=== PATIENT | female | born 1955 | race Caucasian/White ===

== ENCOUNTER 2022-01-15 06:59 | Inpatient (IN) ==
--- NOTE | 2022-01-15 07:25 | Emergency Department Note ---
History of Present Illness General Chief complaint: Fall Stated complaint: FALL, L KNEE & WRIST PAIN Time Seen by Provider: 01/15/22 07:02 History of Present Illness Maximum Pain Intensity: 10 This 66-year-old female presents today for evaluation of left wrist pain and left knee pain after falling at home today. Patient states she was attempting to remove a mouse caught in a glue trap, and was walking across her kitchen floor in socks. She slipped, "scissoring" her legs. She felt a break in her left knee. There was immediate onset of pain. She landed on her left wrist and also noted immediate onset of pain. She was unable to ambulate. No prior history of knee or wrist injury. She denies any numbness or tingling. Patient feels better laying on her side. She presents by EMS service. No treatment yet. She denies striking her head. There was no loss of conscious. She denies any nausea, vomiting, back pain, or abdominal pain. She last ate around 7 PM last evening. Home Medications Medication Instructions Recorded Confirmed Type melatonin 10 mg chewable tablet 10 mg PO HS PRN Sleep 01/15/22 01/15/22 History mvi,min-folic acid 400 mcg-black 1 tab PO DAILY 01/15/22 01/15/22 History coh 40 mg-isoflav 40 mg-jujube tablet (Estroven Menopause) Allergies Allergy/AdvReac Type Severity Reaction Status Date / Time Penicillins Allergy Unknown HAPPENED Verified 01/15/22 15:15 A CHILD Past Med/Surg History Medical History (Updated 01/15/22 @ 22:03 by Ricardo Peters PA-C) No pertinent past medical history Surgical History History of tonsillectomy Family History Other Hypertension No family history of adverse response to anesthesia No family history of bleeding disorder Social History (Updated 01/15/22 @ 14:34 by Ricardo Peters PA-C) Smoking Status: Current some day smoker Tobacco Type: Cigarettes Hx Alcohol Use: Yes Alcohol type: beer Hx Substance Use: No Preferred Language: Bulgarian Communication Ability: Effective Hearing Ability: Normal Ror Engineer Required: No Beliefs That Will Affect Care: None marital status: Single Current Living Situation: Family Current Living Situation Comment: Cares for her mother. Feels Safe at Home: Yes Assistive Devices: Denture - Upper, Denture - Lower and Glasses Review of Systems A total of 10 systems reviewed and were otherwise negative Physical Exam Vital Signs Vital Signs - 24 hr 01/15/22 06:59 Temperature 36.6 C Temperature Source Oral Pulse Rate 70 Respiratory Rate 18 Respiratory Effort / Characteristics Non-Labored Respiratory Depth Normal Respiratory Pattern Regular Blood Pressure 128/77 Blood Pressure Mean 94 Pulse Oximetry 100 Oxygen Delivery Method Room Air Sepsis Recent Fever Within 48 Hours No Sepsis New/Unexplained Change in Mental Status N/A Sepsis Action Taken by Nursing No Action Required General: Well-developed, well-nourished, elderly female, in no acute distress. Laying in bed. Alert and oriented. Obvious discomfort. Skin: Warm dry with good turgor. No rashes or lesions. No ecchymosis. She does have edema present at her left wrist and left knee. There is also edema at the left lateral gastroc/fibular head. Heart: Heart RRR. No MGR. Peripheral pulses are 2+. Lungs: Lungs are clear to auscultation. No crackles rhonchi or wheezing. Good air movement. The patient is able to take a deep breath. Abdomen: Abdomen was inspected, auscultated, and palpated. Bowel sounds present x 4. Soft, nontender to palpation. No hepato-splenomegaly. No masses noted. No rebound. Musculoskeletal: Left wrist evaluation reveals very limited motion secondary to pain. Obvious deformity to the wrist. She has focal pain with palpation over the distal radius, distal ulna, and carpal bones. No pain with palpation over the metacarpals or digits. Motor function of the fingers is intact. She has intact motor function to the shoulder and elbow. She has full flexion extension of the elbow. Supination and pronation are limited secondary to wrist pain. She has no discomfort palpation over her cervical spine, thoracic spine, lumbar spine, right arm, pelvis, or right hip. Supple motion of the right hip, knee, and ankle. Left leg has visible edema at the knee as stated. There is limited range of motion of the knee secondary to pain. She does have full passive stanchion. Flexion to around 60 degrees. Collateral ligament testing was not performed secondary to her edema and pain. She has intact motor function of the ankle and toes. No hip discomfort with gentle motion of the left hip. Neurologic: Gross sensation is intact across the upper and lower extremities by soft touch. Peripheral pulses are 2+. Course Administered Medications Ibuprofen (Ibuprofen 600 Mg Tab) 600 mg PO Q6H PRN PRN Reason: Pain Stop: 02/14/22 20:48 Last Admin: 01/15/22 20:54 Dose: 600 mg Documented By: DEA Discontinued Medications Morphine Sulfate (Morphine Sulfate 4 Mg/Ml 1 Ml Carp\\Vial) 4 mg IV NOW STA Stop: 01/15/22 07:58 Last Admin: 01/15/22 08:10 Dose: 4 mg Documented By: SB Ondansetron HCl (Ondansetron Inj 2 Mg/Ml 2 Ml Vial) 4 mg IV NOW STA Stop: 01/15/22 07:58 Last Admin: 01/15/22 08:10 Dose: 4 mg Documented By: SB Medical Decision Making Differential Diagnosis Intracranial injury, long bone fracture, sprain, contusion, syncopal episod Medical Records Attestation: I reviewed the patient's medical records. Home Medications Current Medication List: was personally reviewed by me Laboratory Data CBC and chemistry panel were obtained today. They are both unremarkable. Result diagrams: 01/15/22 08:13 01/15/22 08:13 Lab Results 01/15/22 01/15/22 Range/Units 08:13 08:13 WBC 7.66 (4.8-10.8) K/ul RBC 3.89 L (3.93-5.22) M/uL Hgb 12.4 (12.0-16.0) g/dl Hct 35.3 (34.1-44.9) % MCV 90.7 (80.0-100.0) fL MCH 31.9 (25.0-34.0) pg MCHC 35.1 (32.0-36.0) g/dL RDW Std Deviation 39.4 (36.4-46.3) fL RDW Coeff of Fernando 11.9 (11.5-14.5) % Plt Count 185 (130-400) K/uL MPV 10.4 (9.4-12.3) fL Immature Gran % (Auto) 0.3 % Neut % (Auto) 71.8 % Lymph % (Auto) 20.9 % [place] % (Auto) 5.5 % Eos % (Auto) 0.7 % Baso % (Auto) 0.8 % Neut # (Auto) 5.51 (1.4-6.5) K/uL Lymph # (Auto) 1.60 (1.2-3.4) K/uL [place] # (Auto) 0.42 (0.24-0.82) K/uL Eos # (Auto) 0.05 (0-0.50) K/uL Baso # (Auto) 0.06 (0-0.2) K/uL Immature Gran # (Auto) 0.02 (0.00-0.02) K/uL Sodium 138 (136-145) mmol/L Potassium 3.8 (3.5-5.1) mmol/L Chloride 108 H (98-107) mmol/L Carbon Dioxide 25 (21-32) mmol/L Anion Gap 5 (3-11) BUN 15 (6-23) mg/dl Creatinine 0.75 (0.6-1.2) mg/dl Est Cr Clr Drug Dosing 95.8 ml/min Est GFR ( Amer) 96.9 ml/min Est GFR (Non-Af Amer) 83.6 ml/min BUN/Creatinine Ratio 20.0 (10-20) Glucose 113 H (70-99(Fasting)) mg/dl Calcium 8.6 (8.5-10.1) mg/dl Total Bilirubin 0.3 (0.2-1.0) mg/dl AST 13 (13-39) U/L ALT 10 (7-52) U/L Alkaline Phosphatase 59 (34-104) U/L Total Protein 5.8 L (6.0-8.3) gm/dl Albumin 3.8 (3.4-5.0) gm/dl Globulin 2.0 L (2.5-4.0) gm/dl Albumin/Globulin Ratio 1.9 (0.9-2) Imaging Data My Impression: Radiographic imaging obtained today of the left wrist and left knee were reviewed by me and read by radiology. Left wrist has a comminuted impacted intra-articular fracture of the distal radius. Left knee has a comminuted depressed lateral tibial plateau fracture with joint effusion and soft tissue swelling. CT scan imaging of the left knee was also obtained. This was also read by radiology and reviewed by me. It shows the comminuted displaced markedly depressed lateral tibial plateau fracture. It is depressed 2.1 cm. Knee joint effusion and lipohemarthrosis was also noted. Radiologist's Impression: Knee X-Ray 01/15/22 07:25 XR knee LT 1 or 2V routine CLINICAL HISTORY: fall, left knee pain/swelling COMPARISON: None FINDINGS: There is an acute lateral tibial plateau fracture which is comminuted and significantly depressed. Fracture likely extends into the metadiaphysis. Associated left knee joint effusion with lipohemarthrosis is present. Soft tissue swelling lateral to the proximal fibula is noted. Mild medial and patellofemoral compartment osteoarthritis is present. IMPRESSION: 1. Acute comminuted significantly depressed lateral tibial plateau fracture. Fracture likely extends to the metadiaphysis of the tibia. 2. Associated left knee joint effusion with lipohemarthrosis. 3. Soft tissue swelling lateral to the proximal left fibula. ACT 112: Negative or not required by law. Electronically signed by: Bulmaro Aguilar M.D. 01/15/2022 8:04 AM Wrist X-Ray 01/15/22 07:25 XR wrist LT 2V CLINICAL HISTORY: fall, left wrist pain/swelling COMPARISON: None FINDINGS: Note is made of an acute comminuted impacted moderately displaced distal left radial fracture with intra-articular extension. There is also an acute displaced fracture of the ulnar styloid. Distal forearm and wrist soft tis simone swelling is present. No acute carpal bone fracture is present. IMPRESSION: 1. Acute comminuted displaced distal left radial fracture with intra-articular extension. 2. Acute displaced fracture of the ulnar styloid. ACT 112: Negative or not required by law. Electronically signed by: Bulmaro Aguilar M.D. 01/15/2022 8:[address] 01/15/22 08:[address] WITHOUT CONTRAST CLINICAL HISTORY: tibial plateau fracture, surgical planning COMPARISON STUDY: Left knee radiographs performed earlier today. TECHNIQUE: Axial images of the left knee were obtained without IV contrast. Sagittal and coronal reconstructions were viewed. Automated exposure control was utilized for the study. A dose lowering technique was utilized adhering to the principles of ALARA. FINDINGS: An acute comminuted displaced and significantly markedly lateral tibial plateau fracture is noted. Central aspect of the lateral tibial plateau is depressed 2.1 cm. The fracture extends to the tibial spines and the lateral metadiaphysis of the left tibia. No additional acute fractures are identified. There is an associated moderate joint effusion with lipohemarthrosis. There is trace gas within the joint space. No additional foci of soft tissue gas are present. Note is made of a moderate-sized contusion overlying the anterolateral aspects of the proximal left tibia and fibula. Moderate degenerative changes within the left knee are present. No osseous lesions are identified. IMPRESSION: 1. Acute comminuted displaced markedly depressed lateral tibial plateau fracture. Central aspect of the lateral tibial plateau depressed 2.1 cm. 2. Associated left knee joint effusion with lipohemarthrosis. 3. Moderate size hematoma/contusion of the lateral left knee and proximal lateral left lower leg. ACT 112: Negative or not required by law. Electronically signed by: Bulmaro Aguilar M.D. 01/15/2022 8:37 AM ECG Data Additional Comments: EKG obtained today shows a normal sinus rhythm with a rate of 67. No acute ST or T wave changes are present. This was reviewed with Dr. Esquivel. Blood Pressure Blood Pressure Findings: Low blood pressure MDM Narrative Patient was evaluated in room C 12. Conservative care measures were discussed. IV was established. Labs were obtained. She was given morphine 4 mg IV and Zofran 4 mg IV with some improvement of her discomfort. Ice was applied. Radiographic imaging was obtained and she was found to have both a comminuted distal radius fracture and comminuted tibial plateau fracture. Patient will require a nonweightbearing status. Given her wrist injury, she will require a platform walker. This is not available until Monday. She is unsafe to be discharged home. I did speak with Dr. Kaplan regarding this patient's injuries and care. He recommended admission. Hospitalist team was consulted. Please see that dictation for final management. Patient is aware that she may require surgical intervention in the future for total knee arthroplasty. Depression of the tibial plateau fragment is significant. She remained stable while in the ED. Preoperative lab work and EKG were obtained. Preadmission COVID testing was performed and is negative. Impression & Plan Left wrist fracture, Closed fracture of lateral portion of left tibial plateau Hospitalist admission. Pain control. Orthopedic consultation. Discharge Plan Visit Data Chief Complaint: Fall Stated Complaint: FALL, L KNEE & WRIST PAIN ED Provider: Manish Esquivel ED Midlevel Provider: Ricardo Peters Discharge Problem: Left wrist fracture, Closed fracture of lateral portion of left tibial plateau Patient Disposition: Admitted As Inpatient Discharge Instructions Interventions: ED Discharge Assessment Last Done: 01/15/22 14:45
[2022-01-15] MEDS ORDERED: MoRPHine SULFATE 4 MG/ML 1 ML CARP\\VIAL IV STA (07:57)
[2022-01-15] MEDS ORDERED: ONDANSETRON INJ 2 MG/ML 2 ML VIAL IV STA (07:57)
--- NOTE | 2022-01-15 08:05 | XRay Report ---
XR knee LT 1 or 2V routine CLINICAL HISTORY: fall, left knee pain/swelling COMPARISON: None FINDINGS: There is an acute lateral tibial plateau fracture which is comminuted and significantly de pressed. Fracture likely extends into the metadiaphysis. Associated left knee joint effusion with lip ohemarthrosis is present. Soft tissue swelling lateral to the proximal fibula is noted. Mild medial a nd patellofemoral compartment osteoarthritis is present. IMPRESSION: 1. Acute comminuted significantly depressed lateral tibial plateau fracture. Fracture likely extends to the metadiaphysis of the tibia. 2. Associated left knee joint effusion with lipohemarthrosis. 3. Soft tissue swelling lateral to the proximal left fibula. ACT 112: Negative or not required by law. Electronically signed by: Bulmaro Aguilar M.D. 01/15/2022 8:04 AM
--- NOTE | 2022-01-15 08:08 | XRay Report ---
XR wrist LT 2V CLINICAL HISTORY: fall, left wrist pain/swelling COMPARISON: None FINDINGS: Note is made of an acute comminuted impacted moderately displaced distal left radial fract ure with intra-articular extension. There is also an acute displaced fracture of the ulnar styloid. D istal forearm and wrist soft tissue swelling is present. No acute carpal bone fracture is present. IMPRESSION: 1. Acute comminuted displaced distal left radial fracture with intra-articular extension. 2. Acute displaced fracture of the ulnar styloid. ACT 112: Negative or not required by law. Electronically signed by: Bulmaro Aguilar M.D. 01/15/2022 8:06 AM
[2022-01-15 08:22] LABS: Basophils # (auto) 0.06 K/uL (0-0.2); Basophils % (auto) 0.8 %; Eosinophils # (auto) 0.05 K/uL (0-0.50); Eosinophils % (auto) 0.7 %; Hematocrit (blood only) 35.3 % (34.1-44.9); Hemoglobin 12.4 g/dl (12.0-16.0); Immature Granulocytes # (auto) 0.02 K/uL (0.00-0.02); Immature Granulocytes % (auto) 0.3 %; Lymphocytes % (auto) 20.9 %; Mean Corpuscular Hemoglobin 31.9 pg (25.0-34.0); Mean Corpuscular Hgb Conc 35.1 g/dL (32.0-36.0); Mean Corpuscular Volume 90.7 fL (80.0-100.0); Mean Platelet Volume 10.4 fL (9.4-12.3); Monocytes # (auto) 0.42 K/uL (0.24-0.82); Monocytes % (auto) 5.5 %; Neutrophils # (auto) 5.51 K/uL (1.4-6.5); Neutrophils % (auto) 71.8 %; Platelet Count 185 K/uL (130-400); RDW Coefficient of Variation 11.9 % (11.5-14.5); RDW Standard Deviation 39.4 fL (36.4-46.3); Red Blood Count 3.89 M/uL (3.93-5.22); White Blood Count 7.66 K/ul (4.8-10.8)
--- NOTE | 2022-01-15 08:38 | CT Scan Report ---
LEFT KNEE CT WITHOUT CONTRAST CLINICAL HISTORY: tibial plateau fracture, surgical planning COMPARISON STUDY: Left knee radiographs performed earlier today. TECHNIQUE: Axial images of the left knee were obtained without IV contrast. Sagittal and coronal papa nstructions were viewed. Automated exposure control was utilized for the study. A dose lowering tech nique was utilized adhering to the principles of ALARA. FINDINGS: An acute comminuted displaced and significantly markedly lateral tibial plateau fracture is noted. Central aspect of the lateral tibial plateau is depressed 2.1 cm. The fracture extends to the tibial spines and the lateral metadiaphysis of the left tibia. No additional acute fractures are jose angel ntified. There is an associated moderate joint effusion with lipohemarthrosis. There is trace gas wit hin the joint space. No additional foci of soft tissue gas are present. Note is made of a moderate-si zed contusion overlying the anterolateral aspects of the proximal left tibia and fibula. Moderate deg enerative changes within the left knee are present. No osseous lesions are identified. IMPRESSION: 1. Acute comminuted displaced markedly depressed lateral tibial plateau fracture. Central aspect of t he lateral tibial plateau depressed 2.1 cm. 2. Associated left knee joint effusion with lipohemarthrosis. 3. Moderate size hematoma/contusion of the lateral left knee and proximal lateral left lower leg. ACT 112: Negative or not required by law. Electronically signed by: Bulmaro Aguilar M.D. 01/15/2022 8:37 AM
[2022-01-15 08:40] LABS: Albumin Globulin Ratio 1.9 (0.9-2); Albumin Level 3.8 gm/dl (3.4-5.0); Bilirubin,Total 0.3 mg/dl (0.2-1.0); Calcium 8.6 mg/dl (8.5-10.1); Creatinine Clr Calc Pharmacy 95.8 ml/min; Est GFR (African American) 96.9 ml/min; Est GFR (Non-African American) 83.6 ml/min; Potassium 3.8 mmol/L (3.5-5.1); Total Protein 5.8 gm/dl (6.0-8.3)
--- NOTE | 2022-01-15 09:09 | History & Physical Report ---
Date of Service January 15, 2022 Assessment & Plan (1) Left wrist fracture: Plan: Patient presented to the hospital following a mechanical fall at home x-ray was done which showed evidence of acute comminuted displaced distal left radial fracture with intra-articular extension and also acute displaced fracture of the ulnar styloid. A splint was placed in the emergency department. Orthopedic has been consulted (2) Left medial tibial plateau fracture: Plan: Patient fell at home Left knee CT showed evidence of acute comminuted displaced and depressed lateral tibial plateau fracture and some macerated left knee effusion. Orthopedics consulted, pain under good control Plan Patient is medically stable and medically cleared for surgery History of Present Illness Chief Complaint: left wrist and left knee pain Primary Care Provider: NO PCP This is 66-year-old female with no significant past medical history who presents to the hospital today after she slipped and fell in her kitchen. Upon arrival at the emergency department, an x-ray was done which showed evidence of acute comminuted displaced distal left radial fracture with intra-articular extension and also acute displaced fracture of the ulnar styloid. Left knee CT showed evidence of acute comminuted displaced and depressed lateral tibial plateau fracture and some macerated left knee effusion. Patient is currently hemodynamically stable, blood pressure 128/77, pulse 70. Orthopedics has been consulted patient be admitted to the hospital for further management. Allergies Allergy/AdvReac Type Severity Reaction Status Date / Time Penicillins Allergy Verified 11/15/21 13:24 Home Medications Medication Instructions Recorded Confirmed Type mometasone 0.1 % topical solution See Rx Instructions topical DAILY 04/09/21 11/15/21 Rx PRN rash #30 mL fluocinolone acetonide oil 0.01 % See Rx Instructions .Route 05/13/21 11/15/21 Rx ear drops .COMPLEX ear itching #20 mL Past Med/Surg History Surgical History History of tonsillectomy Family History Other Hypertension No family history of adverse response to anesthesia No family history of bleeding disorder Social History Smoking Status: Current some day smoker Tobacco Type: Cigarettes Hx Alcohol Use: Yes Hx Substance Use: No Preferred Language: Egyptian Feels Safe at Home: Yes Review of Systems Review of Systems: All systems reviewed are negative, apart from the ones contained in the history. Physical Exam Physical Exam: The patient is awake, alert and oriented 3, well developed and well nourished, normocephalic and atraumatic, lying in bed and in no acute distress. HEENT--PERRL, EOMI, mucous membranes and oropharynx mildly dry Neck--supple. No JVD. No bruits. Thyroid normal, trachea midline, no adenopathy. Heart--normal S1 and S2. No murmurs, rubs or gallops. Lungs--clear bilaterally, no respiratory distress, no accessory muscle use. Abdomen--normal bowel sounds and soft. Mild epigastric and left sided abdominal pain Extremities--left wrist in splint Dermatologic--normal skin turgor, normal color, no abnormal lymph nodes, no rash. Neurologic--cranial nerves II through XII grossly intact. Rheumatologic--normal range of motion. Psychiatric--normal affect. Results & Data Results & Data ([facility]) Vital Signs (Past 12 Hours) Vital Signs Temp Pulse Resp BP Pulse Ox O2 Del Method 01/15/22 06:59 97.9 F 70 18 128/77 100 Room Air PG Care Time/CCT Total # of Minutes Spent Total Time Spent with Patient: Total time spent is greater than 50% in coordination of care (as documented) at patient's floor/unit and/or counseling patient: Coding Level of Care Code 06399 Initial Inpt Care Lvl 3 Diagnoses Left wrist fracture S62.102A Left medial tibial plateau fracture S82.132A Time Spent (min) 35
[2022-01-15] MEDS ORDERED: MoRPHine SULFATE 2 MG/ML CARP IV PRN (15:34)
[2022-01-15] MEDS ORDERED: ACETAMINOPHEN 325 MG TAB PO PRN (15:34)
[2022-01-15] MEDS ORDERED: ONDANSETRON INJ 2 MG/ML 2 ML VIAL IV PRN (15:34)
[2022-01-15] MEDS ORDERED: IBUPROFEN 600 MG TAB PO PRN (20:49)
[2022-01-16 07:41] LABS: Hemoglobin 11.4 g/dl (12.0-16.0); Mean Corpuscular Hemoglobin 31.8 pg (25.0-34.0); Mean Corpuscular Hgb Conc 34.5 g/dL (32.0-36.0); Mean Corpuscular Volume 92.2 fL (80.0-100.0); Mean Platelet Volume 10.9 fL (9.4-12.3); Platelet Count 168 K/uL (130-400); RDW Coefficient of Variation 11.9 % (11.5-14.5); RDW Standard Deviation 40.1 fL (36.4-46.3); Red Blood Count 3.58 M/uL (3.93-5.22)
[2022-01-16 08:06] LABS: BUN Creatinine Ratio 20.3 (10-20); Calcium 8.6 mg/dl (8.5-10.1); Creatinine Clr Calc Pharmacy 111.8 ml/min; Est GFR (African American) 108.5 ml/min; Est GFR (Non-African American) 93.6 ml/min; Potassium 3.8 mmol/L (3.5-5.1)
--- NOTE | 2022-01-16 08:06 | Orthopedic Consultation ---
Date of Service January 16, 2022 Assessment & Plan (1) Closed fracture of lateral portion of left tibial plateau: I spoke with Bettina about her diagnosis and treatment options at bedside. She is still fairly active. The left wrist fracture may be treated surgically or it may be treated conservatively. However, the left tibial plateau fracture is the bigger concern. The central depressed lesion is depressed about 25 mm. It will likely need elevated and appropriate bone cement placed in the void with lateral plate fixation. Unfortunately, this is out of the scope of our practice here at [facility]. I feel she would be better treated at a tertiary care facility. I am recommending transfer to a trauma facility mostly for treatment of the tibial plateau fracture. I discussed this with her at bedside. I also spoke with the hospitalist. (2) Left wrist fracture: History of Present Illness Reason for Consultation: Left wrist fracture and left tibial plateau fracture. Requesting Physician: . Attending Physician: Neno Rhoades MD Bettina is a pleasant 66-year-old female who recently moved to the area to live with her mom. She has been her mom's primary caregiver. She is fairly active. She normally ambulates without assistance. Unfortunately, yesterday she slipped and fell hard in the kitchen. She fell directly onto her left wrist and had a severe valgus injury to her left knee. She came to the emergency room where radiographs demonstrated a comminuted left distal radius fracture and a severely depressed left tibial plateau fracture. She was admitted to the hospitalist service. Orthopedics was consulted to evaluate and treat.. Allergies Allergy/AdvReac Type Severity Reaction Status Date / Time Penicillins Allergy Unknown HAPPENED Verified 01/15/22 15:15 A CHILD Home Medications Medication Instructions Recorded Confirmed Type melatonin 10 mg chewable tablet 10 mg PO HS PRN Sleep 01/15/22 01/15/22 History mvi,min-folic acid 400 mcg-black 1 tab PO DAILY 01/15/22 01/15/22 History coh 40 mg-isoflav 40 mg-jujube tablet (Estroven Menopause) Past Med/Surg History Medical History No pertinent past medical history Surgical History History of tonsillectomy Family History Other Hypertension No family history of adverse response to anesthesia No family history of bleeding disorder Social History Smoking Status: Current some day smoker Tobacco Type: Cigarettes Hx Alcohol Use: Yes Alcohol type: beer Hx Substance Use: No Preferred Language: Persian Communication Ability: Effective Hearing Ability: Normal Absorption Plant Operator Required: No Beliefs That Will Affect Care: None marital status: Single Current Living Situation: Family Current Living Situation Comment: Cares for her mother. Feels Safe at Home: Yes Assistive Devices: Denture - Upper, Denture - Lower and Glasses Review of Systems All systems reviewed & are unremarkable except as noted in HPI & below. Physical Exam On physical examination of left wrist, she has a volar splint in place. She has active motion of her fingers. On examination of the left knee she is in knee immobilizer. She has active dorsiflexion plantarflexion of her left ankle. Sensations intact throughout.. Constitutional WD/WN, vitals as above Eyes PERRL, conjunctivae normal, anicteric sclerae ENMT external ear and nose normal, oropharynx normal Neck trachea midline, no thyromegaly Respiratory normal respiratory effort, lungs clear to auscultation Cardiovascular RRR, no murmur, no edema Gastrointestinal (Abdomen) normal bowel sounds, soft, nontender, no hepatosplenomegaly Skin no rashes, warm and dry Psychiatric A+Ox3, euthymic affect Results & Data Results & Data Laboratory Results . Diagnostic Findings X-rays of the left wrist show an acute, moderately displaced comminuted intra- articular fracture of the left distal radius. CT scan of the left knee does show a tibial plateau fracture with a large central lateral thigh punch lesion. There is 25 mm of depression of this fr agment. There is a small fracture of the lateral cortical wall. . PG Care Time/CCT Total # of Minutes Spent Total Time Spent with Patient: Total time spent is greater than 50% in coordination of care (as documented) at patient's floor/unit and/or counseling patient: Coding Level of Care Code 50734 Inpt Consult Level 4 Diagnoses Closed fracture of lateral portion of left tibial plateau S82.122A Left wrist fracture S62.102A
[2022-01-16] MEDS ORDERED: SODIUM CHLORIDE 0.9% 1000ML 500 ML IV ONE (08:36)
--- NOTE | 2022-01-16 14:35 | Discharge Summary ---
Date of Service January 16, 2022 Admission HPI Per Admitting Provider This is 66-year-old female with no significant past medical history who presents to the hospital today after she slipped and fell in her kitchen. Upon arrival at the emergency department, an x-ray was done which showed evidence of acute comminuted displaced distal left radial fracture with intra-articular extension and also acute displaced fracture of the ulnar styloid. Left knee CT showed evidence of acute comminuted displaced and depressed lateral tibial plateau fracture and some macerated left knee effusion. Patient is currently hemodynamically stable, blood pressure 128/77, pulse 70. Orthopedics has been consulted patient be admitted to the hospital for further management. Principal Diagnosis left wrist fracture, left tibia plateau fracture Discharge Exam The patient is awake, alert and oriented 3, well developed and well nourished, normocephalic and atraumatic, lying in bed and in no acute distress. HEENT--PERRL, EOMI, mucous membranes and oropharynx mildly dry Neck--supple. No JVD. No bruits. Thyroid normal, trachea midline, no adenopathy. Heart--normal S1 and S2. No murmurs, rubs or gallops. Lungs--clear bilaterally, no respiratory distress, no accessory muscle use. Abdomen--normal bowel sounds and soft. Mild epigastric and left sided abdominal pain Extremities--left wrist in splint Dermatologic--normal skin turgor, normal color, no abnormal lymph nodes, no rash. Neurologic--cranial nerves II through XII grossly intact. Rheumatologic--normal range of motion. Psychiatric--normal affect. Discharge Data Allergies Allergy/AdvReac Type Severity Reaction Status Date / Time Penicillins Allergy Unknown HAPPENED Verified 01/15/22 15:15 A CHILD Consultations 01/15/22 08:34 ED Decision to Admit Stat 01/15/22 08:56 Consult Orthopedic Surgery Routine 01/16/22 13:08 Burn CD for patient Stat Ordered Studies 01/15/22 08:06 CT knee LT wo con Stat Hospital Course (1) Left wrist fracture: Patient presented to the hospital following a mechanical fall at home x-ray was done which showed evidence of acute comminuted displaced distal left radial fracture with intra-articular extension and also acute displaced fracture of the ulnar styloid. A splint was placed in the emergency department. Orthopedic has been consulted , plan is for transfer to [facility] (2) Left medial tibial plateau fracture: Patient fell at home Left knee CT showed evidence of acute comminuted displaced and depressed lateral tibial plateau fracture and some macerated left knee effusion. Orthopedics consulted, pain under good control, plan is transfer to [facility] Plan Transfer to [facility] Total Time Total Time Spent Total Time Spent (In Minutes): 35 Discharge Plan Discharge Items Patient Disposition: Transfer Acute Care Hospital Reason For Visit: FALL, FRACTURE Discharge Diagnosis: wrist fracture, tibia fracture Activity: Per Instructions section Non-emergency contact: Primary Care Provider Call non-emergency contact if: you have any medication questions Follow-up/Referrals: PCP,NO [Primary Care Provider] - Diet: Regular Addtl Attending Provider Instructions: you will be transferred to [facility] Pending Studies at Discharge: No Stand-Alone Forms: [employer] Skilled Items Patient informed of condition?: Yes DNR: No Discharge Level of Care: Other Communicable Disease: No Discharge Prognosis: Stable Lines: Peripheral IV Urinary Catheter: Yes Medications and DC Order Prescriptions: Continued Estroven Menopause 400 mcg-40 mg- 40 mg-100 mg Tablet 1 tab PO DAILY melatonin 10 mg Tablet,Chewable 10 mg PO HS PRN (Reason: Sleep) Discharge Orders: Discharge Order (Routine); Ordered 01/16/22 Ordered By: Neno Rhoades Admission Data Admit Date/Time: 01/15/22 08:50 Attending Provider: Neno Rhoades Admit Provider: Neno Rhoades Primary Care Provider: PCP,NO Other Providers: Mike Kaplan ; Dimitrios Blancas Other Interventions: Discharge Summary Assessment (RN) Last Done: 01/16/22 13:56 Coding Level of Care Code D/C DAY MANAGEMENT >30 MINS Diagnoses Left wrist fracture S62.102A Left medial tibial plateau fracture S82.132A Time Spent (min) 35
--- NOTE | 2022-01-17 05:48 | Electrocardiogram Report ---
Test Reason : Blood Pressure : / mmHG Vent. Rate : 067 BPM Atrial Rate : 067 BPM P-R Int : 164 ms QRS Dur : 078 ms QT Int : 418 ms P-R-T Axes : 019 050 051 degrees QTc Int : 441 ms Normal sinus rhythm Normal ECG No previous ECGs available Confirmed by Jeff Ortiz ([id number]) on 01/17/2022 5:48:42 AM Referred By: REFERRED SELF Confirmed By:Jeff Ortiz
== END 2022-01-16 15:08 | disposition short-term general hospital (02) | DRG 563 ==
LOC: ED 06:59 → 3E 08:50